=== PATIENT | male | born 1995 | race Caucasian/White ===

== ENCOUNTER 2023-09-08 14:54 | Emergency (ER) | payer OTHER ==
[2023-09-08 15:23] VITALS: BP 116/59; PULSE 78; RESP 18; TEMP 98.3; BMI 20.5
[2023-09-08] MEDS ORDERED: ACETAMINOPHEN 500 MG TABLET (FP) PO ONE (16:32)
[2023-09-08] MEDS ORDERED: TETANUS AND DIPHTHERIA TOXOID 0.5 ML DISP.SYRIN IM ONE (16:39)
[2023-09-08] MEDS ORDERED: ACETAMINOPHEN 500 MG TABLET (FP) ONE (16:39)
[2023-09-08] MEDS ORDERED: DIPHTH,PERTUSS(ACELL),TET 0.5 ML DISP.SYRIN IM ONE (16:43)
== END 2023-09-08 16:46 | disposition home or self-care (01) ==
LOC: JERFT 14:54
PROC: 0HQGXZZ Repair Left Hand Skin, External Approach (ICD-10-PCS; principal; 2023-09-08)
PROC: 3E0234Z Introduction of Serum, Toxoid and Vaccine into Muscle, Percutaneous Approach (ICD-10-PCS; 2023-09-08)
DX: S61.412A Laceration without foreign body of left hand, initial encounter (principal); W25.XXXA Contact with sharp glass, initial encounter
CPT/HCPCS: 73130-TC-LT-FY; 99283-25